=== PATIENT | male | born 2000 | race Hispanic/Latino ===

== ENCOUNTER 2023-02-04 00:50 | Emergency (ER) | payer SELFPAY ==
[~2023-02-04] VITALS: Ht 167.6 cm; Wt 89.8 kg
[2023-02-04 01:18] LABS: BASOPHILS # (AUTO) 0.1 (0.0-0.1); BASOPHILS % 0.8 % (0.0-1.0); EOSINOPHILS # (AUTO) 0.2 (0.0-0.4); EOSINOPHILS % 2.2 % (0.0-6.0); HEMATOCRIT 43.8 % (38.2-49.6); HEMOGLOBIN 14.9 g/dL (14.0-18.0); LYMPHOCYTES # (AUTO) 2.7 (1.0-3.2); LYMPHOCYTES % 35.6 % (18.0-39.1); MEAN CORPUSCULAR HEMOGLOBIN 29.2 pg (28-32); MEAN CORPUSCULAR VOLUME 85.9 fL (81-99); MONOCYTES # (AUTO) 0.7 (0.2-0.8); MONOCYTES % 8.9 % (4.4-11.3); NEUTROPHILS % 52.2 % (38.7-80.0); PLATELET COUNT 228 x10e3/uL (140-360)
[2023-02-04 01:40] LABS: ALANINE AMINOTRANSFERASE 55 IU/L (0-55); ALBUMIN 4.5 g/dL (3.5-5.0); ALBUMIN/GLOBULIN RATIO 1.2 (0.8-2.0); ALKALINE PHOSPHATASE 87 IU/L (40-150); ANION GAP 16.7 mmol/L (8-16); BLOOD UREA NITROGEN 20 mg/dL (7-26); BUN/CREATININE RATIO 16 (6-25); CARBON DIOXIDE 27 mmol/L (22-29); CHLORIDE 102 mmol/L (98-107); CREATINE KINASE 322 IU/L (30-200); CREATININE, SERUM 1.24 mg/dL (0.72-1.25); GLUCOSE 68 mg/dL (74-118); POTASSIUM 3.7 mmol/L (3.5-5.1); SODIUM 142 mmol/L (136-145)
[2023-02-04] MEDS ORDERED: IOPAMIDOL 370 MG/ML 100 ML INFUS..BTL INJ ONE (01:53)
[2023-02-04 04:33] VITALS: O2SAT 98
== END 2023-02-04 04:34 | disposition home or self-care (01) ==
LOC: ER 00:57
DX: R07.89 Other chest pain (principal); R20.0 Anesthesia of skin; E78.5 Hyperlipidemia, unspecified
CPT/HCPCS: 36415; 71260; 80053; 82550; 83690; 83880; 84484; 85025; 85379; 93005; 99284; Q9967

== ENCOUNTER 2024-08-02 01:55 | Emergency (ER) | payer SELFPAY ==
[~2024-08-02] VITALS: Ht 165.1 cm; Wt 83.9 kg
[2024-08-02 01:59] VITALS: PULSE 54; RESP 16; TEMP 98.5
[2024-08-02 02:31] LABS: BASOPHILS # (AUTO) 0.1 (0.0-0.1); BASOPHILS % 0.3 % (0.0-1.0); EOSINOPHILS % 0.1 % (0.0-6.0); HEMATOCRIT 47.6 % (38.2-49.6); HEMOGLOBIN 15.7 g/dL (14.0-18.0); LYMPHOCYTES # (AUTO) 1.2 (1.0-3.2); MEAN CORPUSCULAR HEMOGLOBIN 29.8 pg (28-32); MEAN CORPUSCULAR VOLUME 90.5 fL (81-99); MONOCYTES # (AUTO) 0.7 (0.2-0.8); MONOCYTES % 4.2 % (4.4-11.3); NEUTROPHILS # (AUTO) 14.9 (2.1-6.9); PLATELET COUNT 239 x10e3/uL (140-360); RED BLOOD COUNT 5.26 x10e6/uL (4.3-5.7); RED CELL DISTRIBUTION WIDTH 12.7 % (11.7-14.4); WHITE BLOOD COUNT 16.94 x10e3/uL (4.8-10.8)
[2024-08-02] MEDS: ONDANSETRON HCL INJ 2MG/ML 2ML 2 MG/ML VIAL IV STA (02:35)
[2024-08-02] MEDS: KETOROLAC TROMETHAMINE 30 MG/ML VIAL IV STA (02:35)
[2024-08-02] MEDS: SODIUM CHLORIDE 0.9% 1000ML 1,000 ML IV ONE (02:36)
[2024-08-02 02:48] LABS: ALBUMIN 4.6 g/dL (3.5-5.0); ALBUMIN/GLOBULIN RATIO 1.4 (0.8-2.0); ANION GAP 17.7 mmol/L (8-16); BILIRUBIN,TOTAL 0.7 mg/dL (0.2-1.2); CALCIUM 9.6 mg/dL (8.4-10.2); CREATININE, SERUM 1.07 mg/dL (0.72-1.25); POTASSIUM 3.7 mmol/L (3.5-5.1); TOTAL PROTEIN 7.9 g/dL (6.5-8.1)
[2024-08-02 03:10] VITALS: BP 148/84
[2024-08-02] MEDS ORDERED: ONDANSETRON ODT4 MG SL (03:10)
[2024-08-02] MEDS ORDERED: PANTOPRAZOLE SO40 MG PO (03:10)
[2024-08-02] MEDS ORDERED: DICYCLOMINE HCL20 MG PO (03:10)
[2024-08-02 03:15] VITALS: O2SAT 100
== END 2024-08-02 03:20 | disposition home or self-care (01) ==
LOC: ER 02:00
DX: R11.2 Nausea with vomiting, unspecified (principal); K29.70 Gastritis, unspecified, without bleeding; R10.13 Epigastric pain; E78.5 Hyperlipidemia, unspecified
CPT/HCPCS: 36415; 80053; 83690; 85025; 99284; J1885; J2405; J2470; J7030

== ENCOUNTER 2024-08-02 09:11 | Observation (INO) | payer SELFPAY ==
[~2024-08-02] VITALS: Ht 165.1 cm; Wt 83.9 kg
[2024-08-02] VITALS (7 sets, daily range): BP systolic 121–151; BP diastolic 73–82; PULSE 59–86; RESP 16–19; TEMP 98.6–98.9; O2SAT 97–100
[~2024-08-02 09:11] MED LIST: DICYCLOMINE HCL20 MG PO; ONDANSETRON ODT4 MG SL; PANTOPRAZOLE SO40 MG PO
[2024-08-02] MEDS ORDERED: IOPAMIDOL 370 MG/ML 100 ML INFUS..BTL INJ ONE (09:31)
[2024-08-02 09:33] LABS: BASOPHILS % 0.2 % (0.0-1.0); HEMOGLOBIN 15.6 g/dL (14.0-18.0); LYMPHOCYTES # (AUTO) 1.3 (1.0-3.2); LYMPHOCYTES % 6.4 % (18.0-39.1); MEAN CORPUSCULAR HEMOGLOBIN 29.6 pg (28-32); MEAN CORPUSCULAR HGB CONC 32.5 g/dL (31-35); MEAN CORPUSCULAR VOLUME 91.1 fL (81-99); MONOCYTES # (AUTO) 1.3 (0.2-0.8); MONOCYTES % 6.5 % (4.4-11.3); NEUTROPHILS # (AUTO) 17.1 (2.1-6.9); NEUTROPHILS % 86.6 % (38.7-80.0); PLATELET COUNT 240 x10e3/uL (140-360); RED BLOOD COUNT 5.27 x10e6/uL (4.3-5.7); RED CELL DISTRIBUTION WIDTH 12.6 % (11.7-14.4); WHITE BLOOD COUNT 19.78 x10e3/uL (4.8-10.8)
[2024-08-02] MEDS: Morphine 4mg INJECTION 4 MG/ML INJ IV STA (09:41)
[2024-08-02] MEDS: ONDANSETRON HCL INJ 2MG/ML 2ML 2 MG/ML VIAL IV STA (09:42)
[2024-08-02] MEDS: SODIUM CHLORIDE 0.9% 1000ML 1,000 ML IV STA (09:42)
[2024-08-02 10:31] LABS: INR 0.99; PARTIAL THROMBOPLASTIN TIME 27.2 seconds (23.8-35.5); PROTHROMBIN TIME 13.7 seconds (11.9-14.5)
[2024-08-02] MEDS: SODIUM CHLORIDE 0.9% 1000ML 1,000 ML IV SCH (11:41)
[2024-08-02] MEDS: Morphine 4mg INJECTION 4 MG/ML INJ IV PRN (14:27)
[2024-08-02] MEDS: ONDANSETRON HCL INJ 2MG/ML 2ML 2 MG/ML VIAL IV PRN (14:27)
[2024-08-03] VITALS (8 sets, daily range): BP systolic 116–142; BP diastolic 55–95; PULSE 61–87; RESP 18; TEMP 97.8–98.9; O2SAT 97–99
[2024-08-03] MEDS ORDERED: ROCURONIUM BROMIDE 1 ML IV ONE (12:06)
[2024-08-03] MEDS ORDERED: FENTANYL CITRATE/PF 100MCG/2 ML INJ ONE ×2 (12:06→13:32)
[2024-08-03] MEDS ORDERED: PROPOFOL IV EMULSION 10 MG/ML 20 ML VIAL ONE ×2 (12:06→14:14)
[2024-08-03] MEDS ORDERED: LIDOCAINE HCL 2% LOCAL INJ 5 ML SDV VIAL INJ ONE (12:06)
[2024-08-03] MEDS ORDERED: MIDAZOLAM HCL 2 MG/2 ML VIAL ONE (13:04)
[2024-08-03] MEDS ORDERED: ACETAMINOPHEN 1000 MG/100 ML 100 ML IV ONE (13:35)
[2024-08-03] MEDS ORDERED: DEXAMETHASONE SOD PHOS INJ 4 MG/ML SDV ONE (13:37)
[2024-08-03] MEDS ORDERED: ONDANSETRON HCL INJ 2MG/ML 2ML 2 MG/ML VIAL ONE (13:37)
[2024-08-03] MEDS ORDERED: FAMOTIDINE 20 MG/2 ML VIAL IV ONE (13:37)
[2024-08-03] MEDS ORDERED: HYDROMORPHONE 2MG/ML ONE (13:50)
[2024-08-03] MEDS ORDERED: NEOSTIGMINE 1 MG/ML 10ML VIAL ONE (13:59)
[2024-08-03] MEDS ORDERED: GLYCOPYRROLATE INJ 0.2 MG/ML VIAL ONE (13:59)
[2024-08-03] MEDS ORDERED: ONDANSETRON HCL INJ 2MG/ML 2ML 2 MG/ML VIAL IV PRN (14:45)
[2024-08-03] MEDS ORDERED: HYDROCODONE/APAP 7.5MG-325MG 1 EA TAB PO PRN (14:45)
[2024-08-03] MEDS: KETOROLAC TROMETHAMINE 30 MG/ML VIAL IV PRN (23:59)
[2024-08-04 03:25] VITALS: BP 120/69; PULSE 94; RESP 18; TEMP 98.1; O2SAT 99
[2024-08-04 06:07] LABS: BASOPHILS % 0.2 % (0.0-1.0); EOSINOPHILS % 0.3 % (0.0-6.0); HEMATOCRIT 39.1 % (38.2-49.6); HEMOGLOBIN 12.9 g/dL (14.0-18.0); LYMPHOCYTES # (AUTO) 1.9 (1.0-3.2); LYMPHOCYTES % 18.9 % (18.0-39.1); MEAN CORPUSCULAR HEMOGLOBIN 29.2 pg (28-32); MEAN CORPUSCULAR VOLUME 88.5 fL (81-99); MONOCYTES # (AUTO) 0.9 (0.2-0.8); MONOCYTES % 9.3 % (4.4-11.3); PLATELET COUNT 203 x10e3/uL (140-360); RED BLOOD COUNT 4.42 x10e6/uL (4.3-5.7); RED CELL DISTRIBUTION WIDTH 12.4 % (11.7-14.4); WHITE BLOOD COUNT 9.83 x10e3/uL (4.8-10.8)
[2024-08-04 06:32] LABS: ANION GAP 13.8 mmol/L (8-16); CALCIUM 8.7 mg/dL (8.4-10.2); CREATININE, SERUM 1.09 mg/dL (0.72-1.25); POTASSIUM 3.8 mmol/L (3.5-5.1)
[2024-08-04 08:08] VITALS: BP 118/68; PULSE 54; RESP 16; TEMP 98.1; O2SAT 98
== END 2024-08-04 13:45 | disposition home or self-care (01) ==
LOC: ER 09:18 → ERHOLD 10:58 → MED/SURG3 12:10
PROVIDERS: ADMIT Surgery; ATTEND Surgery
DX: K35.80 Unspecified acute appendicitis (principal); E86.0 Dehydration; Z88.0 Allergy status to penicillin
CPT/HCPCS: 36415 ×2; 44970; 74177; 80048; 85025 ×2; 85610; 85730; 88304; 99284; G0378 ×3; J0131; J0696 ×3; J1100; J1170; J1885 ×2; J2003; J2250; J2270 ×2; J2405 ×2; J2470; J2704; J2710; J3010; J7030 ×3; Q9967

== ENCOUNTER 2024-12-22 | Emergency (ER) | payer SELFPAY ==
[~2024-12-22] VITALS: Ht 165.1 cm; Wt 88.5 kg
[2024-12-22 00:05] VITALS: PULSE 93; RESP 16; TEMP 98.5
[2024-12-22] MEDS: KETOROLAC TROMETHAMINE 60 MG/2 ML VIAL IM STA (00:19)
[2024-12-22] MEDS ORDERED: ULTRAM 50MG50 MG PO (00:59)
[2024-12-22 01:08] VITALS: BP 109/75; PULSE 83; RESP 10; TEMP 98.5; O2SAT 100
== END 2024-12-22 01:18 | disposition home or self-care (01) ==
LOC: ER 00:05
DX: S83.8X2A Sprain of other specified parts of left knee, initial encounter (principal); Y93.66 Activity, soccer; Y92.322 Soccer field as the place of occurrence of the external cause
CPT/HCPCS: 73562; 99283; J1885